=== PATIENT | female | born 1995 | race African-American/Black ===

== ENCOUNTER 2016-11-19 15:53 | Emergency (ER) | payer BC, MEDICAID ==
[2016-11-19] MEDS ORDERED: DUONEB INH ONE (18:05)
== END 2016-11-19 18:18 | disposition home or self-care (01) ==
LOC: ER 15:53
DX: J20.9 Acute bronchitis, unspecified (principal); F17.210 Nicotine dependence, cigarettes, uncomplicated
CPT/HCPCS: 71020; 80307; 81001; 87880; 94640